=== PATIENT | female | born 1995 | race American Indian/Alaskan Native ===

== ENCOUNTER 2017-07-15 10:45 | Emergency (ER) | payer OTHER ==
[2017-07-15] MEDS ORDERED: NACL 0.9% 1000 ML 1,000 ML IV ONE (12:05)
[2017-07-15] MEDS ORDERED: MORPHINE IV ONE (12:05)
[2017-07-15] MEDS ORDERED: ZOFRAN IV ONE (12:07)
[2017-07-15 13:01] LABS: Hematocrit 37.9 % (30.3-42.9); Hemoglobin 12.9 gm/dl (10.1-14.3); Mean Corpuscular HGB Conc 34 % (30-34); Mean Corpuscular Hemoglobin 31 pg (28-32); Mean Corpuscular Volume 91 fl (79-97); Platelet Count 216 K/mm3 (140-440); Red Blood Count 4.18 M/mm3 (3.65-5.03); Red Cell Distribution Width 13.4 % (13.2-15.2)
[2017-07-15 13:10] LABS: BUN/Creatinine Ratio 10; Blood Urea Nitrogen 4 mg/dL (7-17); Calcium 9.3 mg/dL (8.4-10.2); Hemolysis Index 6
[2017-07-15 13:27] LABS: Bacteria,Urine 2+ /HPF (Negative); Bilirubin,Urine NEG (Negative); Blood,Urine NEG (Negative); Color,Urine Yellow (Yellow); Mucus,Urine FEW /HPF; Nitrite,Urine NEG (Negative); Protein,Urine <15 mg/dL mg/dL (Negative); Urobilinogen,Urine < 2.0 mg/dL (<2.0)
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
[2017-07-15 17:14] VITALS: BP 119/63
== END 2017-07-15 17:13 | disposition home or self-care (01) ==
LOC: ED 10:45
DX: O26.892 Other specified pregnancy related conditions, second trimester (principal); M54.41 Lumbago with sciatica, right side; S93.401A Sprain of unspecified ligament of right ankle, initial encounter; V89.2XXA Person injured in unspecified motor-vehicle accident, traffic, initial encounter; Z3A.00 Weeks of gestation of pregnancy not specified; Y93.89 Activity, other specified; Y92.89 Other specified places as the place of occurrence of the external cause; Y99.8 Other external cause status
CPT/HCPCS: 36415; 73600; 76816; 80048; 81001; 85027; 86900; 86901; 93005; 93010; 96361; 96374; 96375; 99285; J2270; J2405; J7030

== ENCOUNTER 2017-10-18 16:00 | Outpatient (CLI) | payer OTHER ==
[2017-10-18] MEDS ORDERED: LACTATED RINGERS 500 ML IV ONE (16:05)
[2017-10-18 16:19] VITALS: BP 132/74
--- NOTE | 2017-10-18 18:01 | Ultrasound Report ---
FINAL REPORT EXAM: US OB LIMITED HISTORY: decreased movement TECHNIQUE: Limited obstetrical ultrasound PRIORS: None. FINDINGS: LMP 02/15/2017 clinical Age: 35 W 0 D LMP EDC 11/22/2017 Presentation: Cephalic Activity: Monitored Cardiac motion: 135 BPM using M-mode doppler Amniotic Fluid Volume: Adequate TIMOTHY 10.6 cm IMPRESSION: Single intrauterine viable with an approximate age of 30 weeks 0 days. TIMOTHY is normal.
--- NOTE | 2017-10-18 18:03 | Ultrasound Report ---
FINAL REPORT EXAM: US OB BPP WO NON-STRESS HISTORY: decreased movement TECHNIQUE: Biophysical profile obstetrical ultrasound PRIORS: None. FINDINGS: LMP 02/15/2017 clinical Age: 35 W 0 D LMP EDC 11/22/2017 Biophysical profile scoring 2 movement 2 tone 2 breathing 2 fluid 8 /8 overall score Activity: Monitored Cardiac motion: 135 BPM using M-mode doppler Amniotic Fluid Volume: Adequate IMPRESSION: Single intrauterine viable with an approximate age of 35 weeks 0 days. Biophysical profile score is 8/8
== END 2017-10-18 17:15 | disposition home or self-care (01) ==
LOC: TRG 16:00
PROVIDERS: ATTEND Obstetrics & Gynecology
DX: O47.03 False labor before 37 completed weeks of gestation, third trimester (principal); Z3A.35 35 weeks gestation of pregnancy
CPT/HCPCS: 59025; 76815; 76819

== ENCOUNTER 2017-11-02 17:10 | Outpatient (CLI) | payer OTHER ==
[2017-11-02 18:36] VITALS: BP 123/69
[2017-11-02 19:40] LABS: Hematocrit 35.7 % (30.3-42.9); Hemoglobin 12.1 gm/dl (10.1-14.3); Mean Corpuscular HGB Conc 34 % (30-34); Mean Corpuscular Hemoglobin 30 pg (28-32); Mean Corpuscular Volume 88 fl (79-97); Platelet Count 191 K/mm3 (140-440); Red Blood Count 4.08 M/mm3 (3.65-5.03); Red Cell Distribution Width 14.5 % (13.2-15.2)
[2017-11-02 19:41] LABS: Bacteria,Urine 2+ /HPF (Negative); Bilirubin,Urine NEG (Negative); Blood,Urine NEG (Negative); Color,Urine Yellow (Yellow); Mucus,Urine FEW /HPF; Urobilinogen,Urine < 2.0 mg/dL (<2.0)
[2017-11-02 20:03] LABS: Alanine Aminotransferase 10 units/L (7-56); Uric Acid 5.3 mg/dL (3.5-7.6)
== END 2017-11-02 20:47 | disposition home or self-care (01) ==
LOC: TRG 17:10 → LD 17:11 → TRG 20:47
PROVIDERS: ATTEND Obstetrics & Gynecology
DX: O47.1 False labor at or after 37 completed weeks of gestation (principal); Z3A.37 37 weeks gestation of pregnancy
CPT/HCPCS: 36415; 59025; 81001; 82565; 83615; 84450; 84460; 84550; 85027

== ENCOUNTER 2017-11-08 12:11 | Outpatient (CLI) | payer OTHER ==
[2017-11-08 13:23] LABS: Hemoglobin 12.5 gm/dl (10.1-14.3); Mean Corpuscular HGB Conc 33 % (30-34); Mean Corpuscular Hemoglobin 30 pg (28-32); Mean Corpuscular Volume 90 fl (79-97); Platelet Count 197 K/mm3 (140-440); Red Blood Count 4.24 M/mm3 (3.65-5.03)
[2017-11-08 13:31] LABS: Bacteria,Urine 2+ /HPF (Negative); Bilirubin,Urine NEG (Negative); Blood,Urine NEG (Negative); Color,Urine Yellow (Yellow); Mucus,Urine 2+ /HPF; Urobilinogen,Urine < 2.0 mg/dL (<2.0)
[2017-11-08 13:45] LABS: Alanine Aminotransferase 9 units/L (7-56); Uric Acid 5.3 mg/dL (3.5-7.6)
[2017-11-08 14:53] VITALS: BP 124/78
== END 2017-11-08 16:00 | disposition home or self-care (01) ==
LOC: TRG 12:11
PROVIDERS: ATTEND Obstetrics & Gynecology
DX: O47.1 False labor at or after 37 completed weeks of gestation (principal); Z3A.38 38 weeks gestation of pregnancy
CPT/HCPCS: 36415; 59025; 81001; 82565; 83615; 84450; 84460; 84550; 85027

== ENCOUNTER 2020-06-10 17:10 | Inpatient (IN) | payer OTHER ==
--- NOTE | 2020-06-10 20:36 | Ultrasound Report ---
US OB limited, US OB BPP wo non-stress INDICATION / CLINICAL INFORMATION: TIMOTHY. COMPARISON: None available. FINDINGS: A single fetus is seen in cephalic presentation. TIMOTHY is decreased at 1.1. heart rate is 154. BP P is 6/8 IMPRESSION: Single fetus in cephalic presentation with heart rate of 154. TIMOTHY is significantly decreased at 1.1. EPP is 6/8 due to decreased amniotic fluid volume Signer Name: Angel Thompson MD FACR Signed: 06/10/2020 8:32 PM Workstation Name: [id number]
[2020-06-10] MEDS ORDERED: FAMOTIDINE 20 MG/2 ML INJ IV ONE (20:47)
[2020-06-10] MEDS ORDERED: BICITRA ORAL LIQD 30ML PO SCH (20:47)
[2020-06-10] MEDS ORDERED: METOCLOPRAMIDE 10 MG/2 ML INJ IV ONE (20:47)
[2020-06-10] MEDS ORDERED: OXYTOCIN DRIP 30 UNITS/500 ML BAG IV SCH (21:00)
[2020-06-10] MEDS ORDERED: LACTATED RINGERS 1,000 ML IV SCH (21:00)
[2020-06-10 22:35] LABS: Basophils % (Auto) 0.5 % (0.0-1.8); Eosinophils # (Auto) 0.1 K/mm3 (0.0-0.4); Eosinophils % (Auto) 0.9 % (0.0-4.3); Hematocrit 37.8 % (30.3-42.9); Lymphocytes # (Auto) 1.9 K/mm3 (1.2-5.4); Lymphocytes % (Auto) 31.8 % (13.4-35.0); Mean Corpuscular HGB Conc 34 % (30-34); Mean Corpuscular Volume 93 fl (79-97); Monocytes # (Auto) 0.7 K/mm3 (0.0-0.8); Monocytes % (Auto) 12.1 % (0.0-7.3); Platelet Count 168 K/mm3 (140-440); Red Blood Count 4.07 M/mm3 (3.65-5.03); Red Cell Distribution Width 14.1 % (13.2-15.2)
--- NOTE | 2020-06-11 02:00 | History and Physical Report ---
History of Present Illness Date of examination: 06/11/20 Chief complaint: sent from clinic History of present illness: Pt is a 25 year old MARGARETH 06/09/20 at 40w2d who presents from the office with inability to obtain NST. Once admitted to the hospital, BPP was noted to 6/8 (-2 for oligohydramnios with TIMOTHY 1.1 cm). She denies vaginal bleeding or leakage of fluid. She has had care at [facility] with comanagement by [facility] and then [facility] secondary to morbid obesity, arrhythmia noted on 04/01/20 s/p Pediatric Cardiology appt for echo on 04/15/20 with no issues reported, one prior and h/o preeclampsia. She is GBS negative. Past History Past Medical History: other (obesity) Past Surgical History: section Family/Genetic History: none Social history: no significant social history, - Obstetrical History Expected Date of Delivery: 06/09/20 Actual Gestation: 40 Week(s) 2 Day(s) : 2 Para: 1 Hx # Term Pregnancies: 1 Number of Pregnancies: 0 Spontaneous Abortions: 0 Induced : 0 Number of Living Children: 1 Medications and Allergies Allergies Allergy/AdvReac Type Severity Reaction Status Date / Time acetaminophen [From Tylenol] Allergy Severe Anaphylaxis Verified 11/15/17 22:04 amphetamine Allergy Unknown Verified 07/15/17 12:10 Home Medications Medication Instructions Recorded Confirmed Last Taken Type Pnv No.95/Ferrous Fum/Folic AC 1 each PO QDAY #31 tablet 07/15/17 11/16/17 11/15/17 Rx [ Vitamin Tablet] Ibuprofen [Motrin] 600 mg PO Q8H PRN #30 tablet 11/19/17 Unknown Rx oxyCODONE /ACETAMINOPHEN [Percocet 1 tab PO Q6HR PRN #30 tablet 11/19/17 Unknown Rx 5/325] labetaloL [Labetalol 100mg TAB] 100 mg PO BID #60 tablet 11/20/17 Unknown Rx Active Meds: Active Medications Citric Acid/Sodium Citrate (Bicitra) 30 ml PO ONCE EDUARDO Stop: 06/11/20 20:46 Lactated Ringer's (Lactated Ringers) 1,000 mls @ 2,250 mls/hr IV PREOP EDUARDO Stop: 06/11/20 21:27 Oxytocin/Sodium Chloride (Pitocin/Ns 30 Unit/500ml) 30 units in 500 mls @ 0 mls/hr IV TITR EDUARDO; Protocol Cefazolin Sodium 3 gm/ Sodium (Chloride) 100 mls @ 100 mls/30 min IV PREOP NR; Protocol Stop: 06/11/20 23:45 Review of Systems All systems: negative - Vital Signs Vital signs: Vital Signs Temp Pulse Resp BP 98.5 F 87 20 119/58 06/10/20 18:24 06/10/20 18:24 06/10/20 18:24 06/10/20 18:24 Temp Pulse Resp BP Pulse Ox 98 F 70 18 104/58 98 06/10/20 22:00 06/11/20 01:49 06/10/20 22:00 06/10/20 22:02 06/11/20 01:49 - Physical Exam Breasts: Positive: deferred Abdomen: Positive: soft (obese, gravid ) Genitourinary (Female): Positive: normal external genitalia Uterus: Positive: enlarged (gravid ) Extremities: Positive: normal - Obstetrical FHR: auscultation normal Uterine Contraction Monitor Mode: External Uterine Contraction Pattern: Irregular Uterine Tone Measurement Phase: Resting Uterine Contraction Intensity: Mild Results Result Diagrams: 06/10/20 22:07 Abnormal lab results 06/10/20 Range/Units 22:07 Morton % (Auto) 12.1 H (0.0-7.3) % All other labs normal. Assessment and Plan A: IUP at 40w2d Previous x 1 Oligohydramnios Arrhythmia with normal echo 04/15/20 Morbid Obesity H/o preeclampsia in prior GBS Negative Oral intake on 06/10/20 at 1800 pm P: Admit to labor and delivery Wait 6 hours due to oral intake then proceed with repeat section NICU charge nurse aware of arrhythmia Closely monitor maternal and status
[2020-06-11] MEDS ORDERED: FAMOTIDINE 20 MG/2 ML INJ IV ONE (02:51)
[2020-06-11] MEDS ORDERED: METOCLOPRAMIDE 10 MG/2 ML INJ ONE (02:51)
--- NOTE | 2020-06-11 04:32 | Anesthesia Day of Surgery ---
Anesthesia Day of Surgery - Day of Surgery Patient Examined: Yes Patient H&P Reviewed: Yes Patient is NPO: Yes Beta Blockers: No Cardiac Clearance: No Pulmonary Clearance: No Toro's Test: N/A
[2020-06-11] MEDS ORDERED: PROMETHAZINE 25 MG TAB PO PRN (04:33)
[2020-06-11] MEDS ORDERED: PROMETHAZINE 25 MG RECT SUPP PR PRN (04:33)
[2020-06-11] MEDS ORDERED: ONDANSETRON 4 MG/2 ML INJ IV PRN (04:33)
[2020-06-11] MEDS ORDERED: NALOXONE 0.4 MG/1 ML INJ IV PRN ×2 (04:33→11:00)
[2020-06-11] MEDS ORDERED: HYDROmorphone 1 MG/1 ML INJ IV PRN (04:33)
[2020-06-11] MEDS ORDERED: NalbUPHINE 10 MG/1 ML INJ IV PRN (04:33)
[2020-06-11] MEDS ORDERED: diphenhydrAMINE 50 MG/ML VIAL IV PRN (04:33)
--- NOTE | 2020-06-11 04:33 | Anesthesia Consultation ---
Anesthesia Consult and Med Hx Date of service: 06/11/20 - Airway Anesthetic Teeth Evaluation: Good ROM Head & Neck: Adequate Mental/Hyoid Distance: Adequate Mallampati Class: Class II Intubation Access Assessment: Probably Good - Pulmonary Exam CTA: Yes - Cardiac Exam Cardiac Exam: RRR - Pre-Operative Health Status ASA Pre-Surgery Classification: ASA2 Proposed Anesthetic Plan: Spinal - Pulmonary Hx Smoking: No Hx Asthma: No COPD: No Hx Pneumonia: No Hx Sleep Apnea: No - Cardiovascular System Hx Hypertension: No Hx Heart Attack/AMI: No Hx Angina: No - Central Nervous System Hx Seizures: No Hx Psychiatric Problems: No - Gastrointestinal Hx Gastroesophageal Reflux Disease: No - Endocrine Hx Renal Disease: No Hx End Stage Renal Disease: No Hx Insulin Dependent Diabetes: No Hx Non-Insulin Dependent Diabetes: No Hx Hypothyroidism: No Hx Hyperthyroidism: No - Hematic Hx Anemia: No Hx Sickle Cell Disease: No - Other Systems Hx Alcohol Use: No (BEFORE ) Hx Obesity: Yes
[2020-06-11] MEDS ORDERED: miSOPROStol 200 MCG TAB ONE (04:34)
[2020-06-11] MEDS ORDERED: METHYLERGONOVINE MALEATE 0.2 MG/ML VIAL IM ONE (04:34)
--- NOTE | 2020-06-11 04:44 | Event Note ---
Date: 06/11/20 Pt reveals for the first time after being asked by multiple staff members that she had an episode of what she thought was leaking on the night on 06/09 into the morning of 06/10. This leaking stopped however, so she thought she didn't need to mention it.
[2020-06-11] MEDS ORDERED: BUPIVACAINE /DEX-WATER 0.75% (2 ML) AMPULE INFILTRATI ONE (05:07)
[2020-06-11] MEDS ORDERED: ONDANSETRON 4 MG/2 ML INJ ONE (05:07)
[2020-06-11] MEDS ORDERED: KETOROLAC 30 MG/1 ML INJ ONE (05:07)
[2020-06-11] MEDS ORDERED: BUPIVACAINE/PF (0.5%) 5 MG/1 ML 30 ML VIAL INFILTRATI ONE ×2 (05:07→05:10)
[2020-06-11] MEDS ORDERED: ePHEDrine SULFATE 50 MG/1 ML INJ ONE (05:07)
[2020-06-11] MEDS ORDERED: dexAMETHasone 20 MG/5 ML VIAL ONE (05:07)
[2020-06-11] MEDS ORDERED: WATER FOR IRRIG STERILE 1,500 ML BOTTLE IR ONE (05:20)
[2020-06-11] MEDS ORDERED: SODIUM CHLORIDE 0.9% IRR 1,500 ML BOTTLE IR ONE (05:20)
[2020-06-11] MEDS ORDERED: miSOPROStol 200 MCG TAB PR ONE (05:35)
[2020-06-11] MEDS ORDERED: miSOPROStol 100 MCG TAB PR ONE (06:00)
[2020-06-11] MEDS ORDERED: miSOPROStol 100 MCG TAB PO ONE (06:00)
[2020-06-11] MEDS ORDERED: PHENYLEPHRINE/NS 1,000 MCG/10 ML SYRINGE (OR USE) IV ONE (06:00)
--- NOTE | 2020-06-11 06:41 | Procedure Note ---
OB Delivery Note - Delivery Date of Delivery: 06/11/20 Surgeon: JORGE EDWARDS Estimated blood loss: other (600 mL) - Section Preop diagnosis: repeat , other (Oligohydramnios, Previous section ) Postop diagnosis: same section procedure: section, repeat low transverse, other (Lysis of Adhesions ) Disposition: PACU Complications: none Narrative: Please see delivery note - Infant A at 1 minute: 8 at 5 minutes: 8 Gender: Male (2981g (6lb 9oz) @ 0540 am)
--- NOTE | 2020-06-11 06:49 | Operative Report ---
Operative Report Operative Report: Date of procedure: June 11, 2020 Preoperative diagnosis: 1) IUP at 40w2d 2) Previous x 1 3) Oligoh ydramnios 4) Morbid Obesity Postoperative diagnosis: Same 5) Omental Adhesions Procedure: 1) Repeat low transverse section 2) Lysis of Adhesions Surgeon: Paris Ramirez M.D. Anesthesia: Regional Findings: 1) Viable male , Apgars 8 and 8, weight 2981 g, (6 lb 9 oz) in cephalic presentation 2) Normal-appearing uterus ovaries and tubes Estimated blood loss: 600 mL IV fluids: 800 mL Urine output: 200 mL, clear at the end of the procedure Drains: Huerta to gravity Specimens: Placenta to pathology Complications:None. Counts correct x 3 Disposition: Stable to PACU Indication for procedure: Pt is a 25 year old at 40w2d with a h/o one prior section who was found to have oligohydramnios. The decision was made to proceed with section. Operation in detail: After the risks, benefits, alternatives and complications were explained to the patient she gave informed consent for the procedure. She was subsequently taken to the operating room where regional anesthesia was noted to be adequate. She was placed in the dorsal supine position with leftward tilt and prepped and draped in a normal sterile fashion. heart tones were noted prior to incision. A timeout was performed. A Pfannenstiel skin incision was made with the knife and carried down to the layer of the fascia with the Bovie. The fascia was incised in the midline and the fascial incision was extended bilaterally with the Bovie. The fascial incision was then stretched. The rectus muscles were then in the midline and partially transected for adequate visualization. The peritoneum was then entered sharply. Dense adhesions of the omentum to the anterior surface of the uterus were lysed with the Bovie for approximately 15 minutes. The peritoneal incision was extended with good visualization of the bladder. The peritoneal incision was then stretched. An Austen retractor was placed. The bladder blade was then placed. The vesicouterine peritoneuam was graped with smooth pick ups and incised with Metzenbaum scissors. A transverse incision was made in the lower uterine segment with a knife and extended bilaterally with the bandage scissors. Amniotomy was performed with egress of clear fluid. head delivered with ease, followed by shoulders and body. bulb suctioned at delivery. Cord clamped and cut. handed to NICU staff in attendance. Cord blood was collected. The placenta was then delivered manually. The uterus was then cleared of all clots and debris. The hysterotomy was then reapproximated with 0 Vicryl in a running locked fashion. A second layer of the same suture was used in imbricating fashion. A third layer of 0 Vicryl in a figure of eight fashion was used to reapproximate the hysterotomy. The hysterotomy was inspected and hemostasis was noted. The gutters were irrigated and cleared of all clots and debris. The hysterotomy was again inspected and noted to be hemostatic. Surgicel was placed over the hysterotomy. Intercede was placed over the anterior surface of the uterus. The Austen retractor was removed. The peritoneum was reapproximated with 2-0 Vicryl in a running fashion incorporating the rectus muscles. Surgicel was placed over the rectus muscles. The fascia was reapproximated with 0 Vicryl in a running fashion. The subcutaneous tissue was reapproximated with 3-0 Vicryl in a running fashion. The skin was reapproximated with 4-0 Vicryl in a subcuticular fashion. The incision was then covered with steri strips and a pressure dressing. The procedure was then ended. The patient tolerated the procedure well and was taken to the PACU in stable condition. All instrument, lap, and needle counts were correct 3.
--- NOTE | 2020-06-11 07:03 | Progress Note ---
Spinal Anesthesia Block - Spinal Anesthesia Block Start Time: 04:45 Stop Time: 05:00 Performed by:: ESTHELA TOBIAS Procedure: Spinal anesthesia block is being performed for [C/S]. H&P, labs have been reviewed. Patient's questions and concerns have been answered. Informed consent has been performed. Timeout has was performed. Patient in sitting position on side of bed. Sterile prep and drape was performed. 3 mL 1% lidocaine skin wheal at L [3]-L [4]. Needle introducer advanced. 25-gauge spinal needle advanced, [+] CSF [-] blood. [Marcaine 11.25mg and Precedex 5mcg] Spinal dose was given. All needles removed. Patient tolerated procedure well.
--- NOTE | 2020-06-11 07:03 | Progress Note ---
Regional Anesthesia Block - Regional Anesthesia Block Start Time: 06:53 Stop Time: 07:00 Performed By:: ESTHELA TOBIAS Procedure: Patient consented for TAP block for post surgical pain management. Patient identified, monitors placed, and time out performed. Mid axillary TAP identified bilaterally via ultrasound. Skin prepped bilaterally with [chlorhexidine] and [20g stimuplex] needle advanced to the TAP. 30ml [Marcaine 0.25% with 25mcg Pre cedex and Decadron 4mg] injected under ultrasound guidance on the [left] side. 30ml [Marcaine 0.25% with 25mcg Precedex and Decadron 4mg] injected under ultrasound guidance on the [right] side.
[2020-06-11] MEDS ORDERED: ACETAMINOPHEN 325 MG TAB PO PRN (10:38)
[2020-06-11] MEDS ORDERED: D5W/LACTATED RINGERS 1,000 ML IV SCH (10:38)
[2020-06-11] MEDS ORDERED: WITCH HAZEL/ GLYCERIN PAD TP PRN (10:38)
[2020-06-11] MEDS ORDERED: oxyCODONE /ACETAMINOPHEN 5-325MG TAB PO PRN (10:38)
[2020-06-11] MEDS ORDERED: OXYTOCIN DRIP 30 UNITS/500 ML BAG IV SCH (11:00)
[2020-06-11] MEDS ORDERED: MORPHINE 4 MG/1 ML INJ IV PRN (11:00)
[2020-06-11] MEDS ORDERED: LANOLIN/ZINC/DIMETHICONE (LANSINOH) 7 GM TP PRN (11:00)
[2020-06-11] MEDS ORDERED: SIMETHICONE 80 MG CHEW TAB PO PRN (11:00)
[2020-06-11] MEDS: ceFAZolin/NS 1 GM/50 ML 1 GM/50 ML BAG IV SCH ×2 (11:05→18:36)
[2020-06-11] MEDS: KETOROLAC 30 MG/1 ML INJ IV SCH ×3 (11:42→23:25)
--- NOTE | 2020-06-11 14:30 | Post Anesthesia Evaluation ---
- Post Anesthesia Evaluation Patient Participated: Yes Airway Patent: Yes Stable Respiratory Function: Yes Nausea/Vomiting: No Temp > 96.8F: Yes Pain Manageable: Yes Adequeate Hydration: Yes Anesthesia Complications: No Block Receding Appropriately: Yes Patient on Ventilator: No
[2020-06-11] MEDS: MORPHINE 2 MG/1 ML INJ IV PRN (17:00)
[2020-06-11] MEDS ORDERED: MAGNESIUM HYDROXIDE (MOM) ORAL LIQD UDC PO PRN (22:00)
[2020-06-11 22:30] LABS: Hematocrit 31.5 % (30.3-42.9); Hemoglobin 10.8 gm/dl (10.1-14.3)
[2020-06-12] MEDS ORDERED: traMADol 50 MG TAB PO PRN (05:00)
[2020-06-12] MEDS: KETOROLAC 30 MG/1 ML INJ IV SCH (05:49)
[2020-06-12] MEDS ORDERED: MEASLES, MUMPS & RUBELLA 12,500 UNIT/0.5 ML VACCINE SUB-Q ONE (06:00)
[2020-06-12] MEDS ORDERED: DIPHtheria,PERTUSSIS(ACELL),TETANUS VACCINE/PF 0.5 ML VIAL IM ONE (06:51)
--- NOTE | 2020-06-12 08:14 | Progress Note ---
Assessment and Plan A: S/p repeat LTCS, POD1 Pain poorly controlled Reports use of percocet after prior LTCS w/ no adverse reaction Patient reports lack of clear information re clinical status EBL 600 - Hgb 10.8 on 06/11 VSS, labs WNL Bottle feeding P: Initiate percocet for pain, discussion re timely administration of pain medications with RN RN requested to coordinate conversation btwn patient/NICU r/t infant clinical status Monitor clinical status closely Anticipate d/c 06/13 Subjective - Subjective Date of service: 06/12/20 Principal diagnosis: S/p repeat LTCS Interval history: S/p LTCS, POD1 Patient reports: appetite normal, voiding normally, flatus, pain poorly controlled, ambulating normally, no bowel movement [place]: doing well, bottle feeding ( initially in NICU for arrhythmia ) Objective - Vital Signs Latest vital signs: Vital Signs Temp Pulse Resp BP BP Pulse Ox 06/12/20 05:49 18 06/12/20 04:00 98.8 F 67 16 118/73 06/12/20 00:00 98.6 F 75 18 114/78 06/11/20 23:25 18 06/11/20 20:28 98.0 F 81 18 105/60 97 06/11/20 16:09 98.3 F 87 16 110/57 97 06/11/20 11:56 98.4 F 71 20 93/48 97 06/11/20 11:28 16 06/11/20 11:23 66 06/11/20 11:20 97.5 F L 90 12 119/68 100 06/11/20 11:10 72 16 109/61 99 06/11/20 10:34 98.4 F 66 16 93/44 100 06/11/20 09:47 71 92/54 06/11/20 09:32 81 92/52 06/11/20 09:17 74 89/53 06/11/20 09:01 74 87/49 06/11/20 08:30 69 20 89/34 98 06/11/20 08:21 68 20 92/36 98 06/11/20 08:15 70 20 87/47 98 Intake and Output 06/11/20 06/12/20 06/12/20 23:59 07:59 15:59 Intake Total 1000 500 Output Total 2100 800 Balance -1100 -300 Intake: Oral 400 200 Intake, Free Water 600 300 Output: Urine 2100 800 Indwelling Catheter 1300 Void 800 800 Other: Total, Intake Amount 200 200 Total, Output Amount 200 800 # Voids Void 1 1 - Exam Breasts: Present: normal Lungs: Present: Normal air movement Abdomen: Present: normal appearance, soft. Absent: distention, tenderness Uterus: Present: normal, firm, fundal height at umbilicus. Absent: bogginess, tenderness Extremities: Present: normal
[2020-06-12] MEDS: MORPHINE 2 MG/1 ML INJ IV PRN (08:16)
[2020-06-12] MEDS: oxyCODONE /ACETAMINOPHEN 5-325MG TAB PO PRN ×2 (09:51→17:30)
[2020-06-12] MEDS: FERROUS SULFATE 325 MG TAB PO SCH (09:51)
[2020-06-12] MEDS: IBUPROFEN 800 MG TAB PO PRN ×2 (15:12→22:04)
[2020-06-13] MEDS: oxyCODONE 5 MG TAB PO PRN ×2 (00:50→13:32)
[2020-06-13] MEDS: IBUPROFEN 800 MG TAB PO PRN (07:11)
[2020-06-13] MEDS ORDERED: MAGNESIUM HYDROXIDE (MOM) ORAL LIQD UDC PO PRN (08:30)
--- NOTE | 2020-06-13 08:37 | Progress Note ---
Assessment and Plan A: S/p repeat LTCS, POD2 Pain well controlled with Oxycodone Passing flatus, has not had BM EBL 600 - Hgb 10.8 on 06/11 VSS, labs WNL Bottle feeding P: Continue Oxycodone for pain management Milk of magnesia q4hr PRN for constipation Peds team to update on infant clinical status Discharge to home today or POD3 Subjective - Subjective Date of service: 06/13/20 Principal diagnosis: S/p repeat LTCS Interval history: S/p LTCS, POD2 Patient reports: appetite normal, voiding normally, pain well controlled, flatus, ambulating normally, no bowel movement [place]: doing well, bottle feeding Objective - Vital Signs Latest vital signs: Vital Signs Temp Pulse Resp BP BP Pulse Ox 06/13/20 00:35 97.8 F 78 20 97/54 98 06/12/20 16:49 98.2 F 103 H 20 90/61 Intake and Output 06/12/20 06/13/20 06/13/20 23:59 07:59 15:59 Intake Total 560 240 Output Total 700 Balance -140 240 Intake: Oral 560 240 Output: Urine 700 Void 700 Other: Total, Intake Amount 240 120 Total, Output Amount 700 # Voids Void 1 1 - Exam Breasts: Present: deferred Abdomen: Present: soft. Absent: distention, tenderness Uterus: Present: firm. Absent: bogginess Extremities: Present: normal Incision: Present: dressed
[2020-06-13] MEDS: FERROUS SULFATE 325 MG TAB PO SCH (10:04)
--- NOTE | 2020-06-13 10:58 | Discharge Summary ---
Providers - Providers Date of Admission: 06/11/20 05:00 Date of discharge: 06/13/20 Attending physician: JORGE EDWARDS 06/11/20 10:38 Consult to [employer] [CONS] Routine Reason For Exam: Primary care physician: JORGE EDWARDS Hospitalization Reason for admission: section, IUP at term Delivery: Procedure: repeat low transverse Incision: dressed Other procedures: none complications: none Discharge diagnosis: IUP at term delivered Hospital course: Pt presented for BPP due to inability to obtain NST ( arrythmia). She was found to have oligohydramnios 1.1cm and [facility] Her course was uncomplicated and she met discharge criteria on POD2. Condition at discharge: Good Disposition: DC-[id number] TO HOME OR SELFCARE Plan - Discharge Medications Prescriptions: Ibuprofen [Motrin] 600 mg PO Q6H PRN #60 tablet PRN Reason: Pain - Provider Discharge Summary Activity: routine, no sex for 6 weeks, no heavy lifting 4 weeks, no strenuous exercise Diet: routine Instructions: routine Additional instructions: [] Smoking cessation referral if applicable(refer to patient education folder for contact #) [] Refer to [facility] Booklet Call your doctor immediately for: * Fever > 100.5 * Heavy vaginal bleeding ( >1 pad per hour) * Severe persistent headache * Shortness of breath * Reddened, hot, painful area to leg or breast * Drainage or odor from incision. * Keep incision clean and dry at all times and follow doctor's instructions regarding bathing/showering - Follow up plan Follow up: JORGE EDWARDS MD [Primary Care Provider] - 14 Days (Please call office to schedule appointment.)
[2020-06-13 17:22] VITALS: BP 111/59
== END 2020-06-13 16:30 | disposition home or self-care (01) | DRG 765 ==
LOC: TRG 17:10 → APU 17:12 → LD 21:05 → TRG 06-11 05:00 → LD 06-11 05:00 → OB 06-11 09:51
PROVIDERS: ADMIT Obstetrics & Gynecology; ATTEND Obstetrics & Gynecology
PROC: 10D00Z1 Extraction of Products of Conception, Low, Open Approach (ICD-10-PCS; principal; 2020-06-11)
PROC: 0DNU0ZZ Release Omentum, Open Approach (ICD-10-PCS; 2020-06-11)
PROC: 3E0234Z Introduction of Serum, Toxoid and Vaccine into Muscle, Percutaneous Approach (ICD-10-PCS; 2020-06-12)
PROC: 3E0134Z Introduction of Serum, Toxoid and Vaccine into Subcutaneous Tissue, Percutaneous Approach (ICD-10-PCS; 2020-06-12)
DX: O41.03X0 Oligohydramnios, third trimester, not applicable or unspecified (principal); R71.0 Precipitous drop in hematocrit; O76 Abnormality in fetal heart rate and rhythm complicating labor and delivery; O34.211 Maternal care for low transverse scar from previous cesarean delivery; O99.214 Obesity complicating childbirth; E66.01 Morbid (severe) obesity due to excess calories; O99.62 Diseases of the digestive system complicating childbirth; K66.0 Peritoneal adhesions (postprocedural) (postinfection); Z3A.40 40 weeks gestation of pregnancy; Z37.0 Single live birth; Z23 Encounter for immunization; Z79.899 Other long term (current) drug therapy
CPT/HCPCS: 36415; 76815; 76819; 85014; 85018; 85025; 86592; 86850; 86900; 86901; 88307; G0378; C1765; J0690; J1100; J1885; J2270; J2370; J2405; J2590; J3490; J7120; U0003